=== PATIENT | female | born 1955 ===

== ENCOUNTER 2017-07-26 13:47 | Emergency (ER) | payer SELFPAY ==
[2017-07-26 13:58] VITALS: BP 154/92; PULSE 85; RESP 18; TEMP 97.6; O2SAT 100
--- NOTE | 2017-07-26 14:47 | ED PDOC ---
HPI: Skin/Bite Injury Time Seen by Provider: 07/26/17 14:12 Chief Complaint (Nursing): Abnormal Skin Integrity Chief Complaint (Provider): Itchy red rash x 5 months History Per: Patient History/Exam Limitations: no limitations Onset/Duration Of Symptoms: Days Current Symptoms Are (Timing): Still Present Quality Of Symptoms: Itching Severity: Moderate Pain Scale Rating Of: 5 Additional Complaint(s): Pt states she was seen in [place] for the same and was treated with medications for allergies which made it go away. Pt states she than had allergy testing which was all negative. PT states she has tried benadryl but it is not helping. Past Medical History Reviewed: Historical Data, Nursing Documentation, Vital Signs Vital Signs: Last Vital Signs Temp 97.6 F 07/26/17 13:53 Pulse 85 07/26/17 13:53 Resp 18 07/26/17 13:53 BP 154/92 H 07/26/17 13:53 Pulse Ox 100 07/26/17 13:53 - Medical History PMH: No Chronic Diseases - Surgical History Surgical History: No Surg Hx - Family History Family History: States: No Known Family Hx - Immunization History Hx Tetanus Toxoid Vaccination: No Hx Influenza Vaccination: No Hx Pneumococcal Vaccination: No - Home Medications Home Medications: Ambulatory Orders Medication Instructions Recorded predniSONE [predniSONE Tab] 20 mg PO DAILY #12 tab 07/26/17 - Allergies Allergies/Adverse Reactions: Allergies Allergy/AdvReac Type Severity Reaction Status Date / Time No Known Allergies Allergy Verified 07/26/17 13:55 Review of Systems ROS Statement: Except As Marked, All Systems Reviewed And Found Negative Constitutional: Negative for: Fever, Chills Skin: Positive for: Rash Physical Exam - Reviewed Nursing Documentation Reviewed: Yes Vital Signs Reviewed: Yes - Physical Exam Appears: Positive for: Well, Non-toxic, No Acute Distress Head Exam: Positive for: ATRAUMATIC, NORMAL INSPECTION, NORMOCEPHALIC Skin: Positive for: Warm. Negative for: Normal Color (Erythematous blanching rash on the neck, arms and abdomen. ) Eye Exam: Positive for: Normal appearance ENT: Positive for: Normal ENT Inspection Neck: Positive for: Normal, Painless ROM Cardiovascular/Chest: Positive for: Regular Rate, Rhythm Respiratory: Positive for: Normal Breath Sounds. Negative for: Accessory Muscle Use Back: Positive for: Normal Inspection Extremity: Positive for: Normal ROM Neurologic/Psych: Positive for: Alert, Oriented - ECG O2 Sat by Pulse Oximetry: 100 Disposition - Clinical Impression Clinical Impression: Rash - Patient ED Disposition Is Patient to be Admitted: No Counseled Patient/Family Regarding: Diagnosis, Need For Followup, Rx Given - Disposition Disposition: Routine/Home Disposition Time: 14:47 Condition: GOOD Prescriptions: predniSONE [predniSONE Tab] 20 mg PO DAILY #12 tab Instructions: Acute Rash (ED) Print Language: SURINAMESE
== END 2017-07-26 14:59 | disposition home or self-care (01) ==
LOC: H.ER 13:47
DX: R21 Rash and other nonspecific skin eruption (principal)